=== PATIENT | male | born 1950 | race Caucasian/White ===

== ENCOUNTER 2020-01-19 15:57 | Emergency (ER) | payer OTHER ==
[~2020-01-19] VITALS: Ht 162.6 cm; Wt 66.2 kg
[2020-01-19 16:03] VITALS: Ht 162.6 cm; Wt 66.2 kg
[2020-01-19 17:57] VITALS: BP 148/95
== END 2020-01-19 17:57 | disposition home or self-care (01) ==
LOC: ED 15:57
DX: M25.552 Pain in left hip (principal); E11.9 Type 2 diabetes mellitus without complications; E78.00 Pure hypercholesterolemia, unspecified; Z90.49 Acquired absence of other specified parts of digestive tract